=== PATIENT | male | born 1945 | race Caucasian/White ===

== ENCOUNTER → 2024-03-31 06:03 | Outpatient (REF) | payer MEDICARE, BC, SELFPAY ==
[2024-03-31 10:37] LABS: PSA, Total - Diagnostic 3.23 ng/ml (0.0-4.0)
== END ==
LOC: HWLAB 06:03
PROVIDERS: ATTENDING PHYSICIAN Urology; FAMILY PHYSICIAN Family Medicine
DX: R97.20 Elevated prostate specific antigen [PSA] (principal)
CPT/HCPCS: 36415; 84153